=== PATIENT | female | born 2000 | race Caucasian/White ===

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

== ENCOUNTER 2021-06-15 17:02 | Outpatient (REF) | payer MEDICAID, SELFPAY ==
[2021-06-18 13:56] LABS: COVID-19 RT-PCR UVMMC Result Negative (Negative)
== END 2021-06-15 17:03 | disposition home or self-care (01) ==
LOC: NCHCN 17:02
PROVIDERS: Visit Provider Registered Nurse
DX: Z20.822 Contact with and (suspected) exposure to COVID-19 (principal); J06.9 Acute upper respiratory infection, unspecified
CPT/HCPCS: U0003

== ENCOUNTER 2021-10-02 11:23 | Outpatient (REF) | payer MEDICAID, SELFPAY ==
[2021-10-02 14:36] LABS: Abs Immature Grans 0.04 10^3/uL (0.0-0.06); Absolute Basophil Count 0.06 10^3/uL (0.0-0.2); Absolute Eosinophil Count 0.18 10^3/uL (0.0-0.7); Absolute Lymphocyte Count 2.42 10^3/uL (1.2-3.4); Absolute Monocyte Count 0.82 10^3/uL (0.1-0.8); Absolute Neutrophil Count 6.57 10^3/uL (1.2-6.7); Basophils % 0.6; Eosinophils % 1.8; HCT 43.6 % (36.0-46.0); HGB 14.6 g/dL (11.2-15.7); Immature Grans % 0.4; MCH 27.4 pg (27.0-33.0); MCHC 33.5 % (32.0-36.0); MCV 82 fL (80-95); MPV 11.7 fL (8.0-11.0); Monocytes % 8.1; Neutrophils % 65.1; Platelet Count 281 10^3/uL (130-400); RBC 5.32 10^6/uL (3.93-5.22); RDW 14.5 % (11.7-14.6); RDW-SD 43.5 fL; WBC 10.09 10^3/uL (4.4-10.8)
[2021-10-02 15:41] LABS: ALT 41 U/L (14-59); AST 24 U/L (15-37); Albumin 3.7 g/dL (3.4-5.0); Alkaline Phosphatase 78 U/L (46-116); Anion Gap 8.9 mmol/L (3-11); BUN 8 mg/dL (7-18); Bilirubin, Total 0.2 mg/dL (0.2-1.0); CO2 25.1 mmol/L (21.0-32.0); CREATININE 0.7 mg/dL (0.55-1.02); Calcium 8.9 mg/dL (8.5-10.1); Chloride 99 mmol/L (98-107); Glucose 98 mg/dL (74-106); Magnesium 2.2 mg/dL (1.8-2.4); Potassium 3.4 mmol/L (3.5-5.1); Sodium 133 mmol/L (136-145); TSH (W/Ref FT4) 1.26 uIU/mL (0.52-4.13); Total Protein 8.7 g/dL (6.4-8.2); Vitamin B12 566 pg/mL (193-986)
[2021-10-04 05:24] LABS: Vitamin D 25 Total 33.3 ng/mL (30-100)
[2021-10-04 11:51] LABS: COVID-19 RT-PCR UVMMC Result Negative (Negative)
== END 2021-10-02 11:24 | disposition home or self-care (01) ==
LOC: NCHCN 11:23
PROVIDERS: Visit Provider Nurse Practitioner Family
DX: B34.9 Viral infection, unspecified (principal); F41.1 Generalized anxiety disorder; Z20.822 Contact with and (suspected) exposure to COVID-19
CPT/HCPCS: 80053; 82306; U0003; 82607; 83735; 84443; 85025

== ENCOUNTER 2021-10-10 21:29 | Outpatient (REF) | payer MEDICAID, SELFPAY ==
[2021-10-10 22:18] LABS: ALT 39 U/L (14-59); AST 23 U/L (15-37); Albumin 3.4 g/dL (3.4-5.0); Alkaline Phosphatase 67 U/L (46-116); Anion Gap 11.1 mmol/L (3-11); BUN 16 mg/dL (7-18); Bilirubin, Total 0.1 mg/dL (0.2-1.0); CO2 26.9 mmol/L (21.0-32.0); CREATININE 0.8 mg/dL (0.55-1.02); Calcium 9.2 mg/dL (8.5-10.1); Chloride 100 mmol/L (98-107); Glucose 86 mg/dL (74-106); Potassium 4.1 mmol/L (3.5-5.1); Sodium 138 mmol/L (136-145)
== END 2021-10-10 21:30 | disposition home or self-care (01) ==
LOC: NCHCN 21:29
PROVIDERS: Visit Provider Nurse Practitioner Family
DX: B34.9 Viral infection, unspecified (principal)
CPT/HCPCS: 80053; 85025

== ENCOUNTER 2021-11-29 07:19 | Outpatient (REF) | payer MEDICAID, SELFPAY ==
[2021-11-29 22:08] LABS: Abs Immature Grans 0.02 10^3/uL (0.0-0.06); Absolute Basophil Count 0.07 10^3/uL (0.0-0.2); Absolute Lymphocyte Count 4.12 10^3/uL (1.2-3.4); Absolute Monocyte Count 0.64 10^3/uL (0.1-0.8); Basophils % 0.7; Eosinophils % 3.1; HCT 39.4 % (36.0-46.0); Immature Grans % 0.2; Lymphocytes % 42.3; MCH 27.6 pg (27.0-33.0); MCV 84 fL (80-95); MPV 12.4 fL (8.0-11.0); Monocytes % 6.6; Neutrophils % 47.1; Platelet Count 272 10^3/uL (130-400); RBC 4.71 10^6/uL (3.93-5.22); RDW 14.5 % (11.7-14.6); RDW-SD 44.2 fL; WBC 9.75 10^3/uL (4.4-10.8)
== END 2021-11-29 07:20 | disposition home or self-care (01) ==
LOC: NCHCN 07:19
PROVIDERS: Visit Provider Nurse Practitioner Family
DX: B34.9 Viral infection, unspecified (principal)
CPT/HCPCS: 85025

== ENCOUNTER 2022-09-16 15:49 | Outpatient (REF) | payer MEDICAID, SELFPAY ==
[2022-09-16 21:29] LABS: Abs Immature Grans 0.02 10^3/uL (0.0-0.06); Absolute Basophil Count 0.07 10^3/uL (0.0-0.2); Absolute Eosinophil Count 0.51 10^3/uL (0.0-0.7); Absolute Lymphocyte Count 3.34 10^3/uL (1.2-3.4); Absolute Monocyte Count 0.68 10^3/uL (0.1-0.8); Absolute Neutrophil Count 3.86 10^3/uL (1.2-6.7); Basophils % 0.8; HCT 38.8 % (36.0-46.0); HGB 12.9 g/dL (11.2-15.7); Immature Grans % 0.2; Lymphocytes % 39.4; MCH 29.1 pg (27.0-33.0); MCHC 33.2 % (32.0-36.0); MCV 88 fL (80-95); MPV 12.3 fL (8.0-11.0); Neutrophils % 45.6; Platelet Count 224 10^3/uL (130-400); RBC 4.43 10^6/uL (3.93-5.22); RDW 13.2 % (11.7-14.6); WBC 8.48 10^3/uL (4.4-10.8)
[2022-09-16 22:14] LABS: TSH (W/Ref FT4) 1.11 uIU/mL (0.36-3.74)
== END 2022-09-16 15:50 | disposition home or self-care (01) ==
LOC: NCHCN 15:49
PROVIDERS: Visit Provider Family Medicine
DX: R53.83 Other fatigue (principal); F32.89 Other specified depressive episodes; M25.562 Pain in left knee
CPT/HCPCS: 84443; 85025

== ENCOUNTER 2023-11-06 11:54 | Outpatient (REF) | payer MEDICAID, SELFPAY ==
--- OUTSIDE RECORDS SUMMARY | 2023-11-06 11:55 | XMS_ITS ---
Author Organization Unknown Address [address] [place] [address] [phone] Phone Care Team Providers Care Reach Truck Operator Name Role Phone PETE EMERY Registered Nurse Unavailable GENO Brooks Attending Unavailable PAULINA [facility] Unavailable KRYSTLE Haramn Primary Unavailable UNLISTED PROVIDER - REQUESTED Xhandoff Un available Results STREP GROUP A ANTIGEN ASSAY - Collect Date/Time: 03/13/2021 11:09 [facility] ID: [id number] [address] [place], [place], [address] LOINC: 31826-1 Test Value Unit Reference Range Code Code System Flag GRP A STREP ANTIGEN NOT DETECTED 6556-5 LOINC Social History Type Status Start Date End Date Code Code Syst em Smoking History Never smoker (Never Smoked) 956588729 SNOMED CT Sex Female Vital Signs Vital Sign Value Unit [place] Value [place] Unit Date/Time Recent/Initial? Code Code System Body Mass Index 25.75 kg/m2 03/13/2021 10:13 Initial 43619 -5 LOINC Body Mass Index Percentile 83 % 03/13/2021 10:13 Initial 86445 -9 LOINC Systolic Blood Pressure 124 mm[Hg] 03/13/2021 10:13 Initial 8480- 6 LOINC Diastolic Blood Pressure 90 mm[Hg] 03/13/2021 10:13 Initial 8462- 4 LOINC Body Surface Area 1.75 m2 03/13/2021 10:13 Initial 3140- 1 LOINC Height 162.560 0 cm 64.00 in 03/13/2021 10:13 Initial 8302- 2 LOINC O2 Saturation 99 % 2020 10:13 Initial 00446 -5 LOINC Pulse 104.0 /min 03/13/2021 10:13 Initial 8867- 4 LOINC Respiration 16 /min 03/13/20 10:13 Initial 9279- 1 LOINC Temperature 36.4 Penny 97.5 F 03/13/20 10:13 Initial 8310- 5 LOINC Weight 68.04 kg 150.00 lbs 03/13/2021 10:13 Initial 84474 -7 LOINC Medications Medication Start Date End Date Route Frequency Dose Code Code System Medication Instructions Home Meds Zofran 4MG Oral Tablet 12/18/2022 Unknown ORAL NEEDED EVERY 8 HOURS 1 TABLET 443729 RxNorm TAKE 1 TABLET ORAL NEEDED EVERY 8 HOURS Hospital Discharge Instructions Should you have any questions prior to discharge, please contact a member of your healthcare team. If you have left the hospital and have any questions, please contact your primary care physician. Reason For Referral No Data Found Problems Problem Start Date Resolved Date Status Code Code System ASTHMA 03/13/2021 resolved 919443624 SNOMED-CT Allergies and Adverse Reactions Allergy Substance Reaction Severity Start Date Concern Status Co de Code System No Known Drug Allergies Active 059111318 SNOMED-CT Plan of Treatment US PELVIC / TV 01/23/2023 US PELVIC / TV 02/18/2022 Encounters Encounter Diagnosis Start Date Code Code Sys tem Viral disease 03/13/2021 28403637 SNOMED-CT Personal Care Team Section Performer Name Performer Role Active Date Inactive Moustapha win
--- OUTSIDE RECORDS SUMMARY | 2023-11-06 11:56 | XMS_ITS ---
Author Organization Unknown Address [address] [place] [address] [phone] Phone Care Team Providers Care Emt Dispatcher Name Role Phone SLY Harman Attending Unavailable KRYSTLE Harman Primary Unavailable Results CHLAMYDIA/GC AMPLIFIED PROBE * - Collect Date/Time: 02/04/2022 15:07 [facility] ID: [id number] [address] [place], [place], [phone] LOINC: 52131-6 Test Value Unit Reference Range Code Code System Flag Chlamydia Result Negative Negative GC Result Negative Negative Social History Type Status Start Date End Date Code Code Syst em Smoking History Never smoker (Never Smoked) 002502713 SNOMED CT Sex Female Medications Medication Start Date End Date Route Frequency Dose Code Code System Medication Instructions Home Meds Zofran 4MG Oral Tablet 12/18/2022 Unknown ORAL NEEDED EVERY 8 HOURS 1 TABLET 297246 RxNorm TAKE 1 TABLET ORAL NEEDED EVERY 8 HOURS Hospital Discharge Instructions Should you have any questions prior to discharge, please contact a member of your healthcare team. If you have left the hospital and have any questions, please contact your primary care physician. Reason For Referral No Data Found Problems Problem Start Date Resolved Date Status Code Code System ASTHMA 03/13/2021 resolved 987803292 SNOMED-CT Allergies and Adverse Reactions Allergy Substance Reaction Severity Start Date Concern Status Co de Code System No Known Drug Allergies Active 443472251 SNOMED-CT Plan of Treatment US PELVIC / TV 01/23/2023 US PELVIC / TV 02/18/2022 Encounters Encounter Diagnosis Start Date Code Code Sys tem Contraception care education 02/04/2022 791573250 SNOMED-CT Personal Care Team Section Performer Name Performer Role Active Date Inactive Da quirino
--- OUTSIDE RECORDS SUMMARY | 2023-11-06 11:56 | XMS_ITS ---
Author Organization Unknown Address [address] [place] [address] [phone] Phone Care Team Providers Care Gear Lapping Machine Operator Name Role Phone PAMISAEL JULY Attending Unavailable KRYSTLE Harman Primary Unavailable Results VAGINAL SMEAR EVALUATION* - Collect Date/Time: 06/04/2021 10:52 [facility] ID: [id number] [address] [place] [address], [phone] LOINC: 18581-7 Test Value Unit Reference Range Code Code System Flag WBC s few Yeast. None Hyphae N/A Clue cells Not present TOTAL JOSEFA SCORE 4 CULT URINE CULTURE* - Collec t Date/Time: 06/04/2021 10:25 [facility] ID: [id number] [address] [place] [address], [phone] LOINC: 630-4 Test Value Unit Reference Range Code Code System Flag COLLECTION MODE: CLEAN CATCH Social History Type Status Start Date End Date Code Code Syst em Smoking History Never smoker (Never Smoked) 615292115 SNOMED CT Sex Female Medications Medication Start Date End Date Route Frequency Dose Code Code System Medication Instructions Home Meds Zofran 4MG Oral Tablet 12/18/2022 Unknown ORAL NEEDED EVERY 8 HOURS 1 TABLET 288066 RxNorm TAKE 1 TABLET ORAL NEEDED EVERY 8 HOURS Hospital Discharge Instructions Should you have any questions prior to discharge, please contact a member of your healthcare team. If you have left the hospital and have any questions, please contact your primary care physician. Reason For Referral No Data Found Problems Problem Start Date Resolved Date Status Code Code System ASTHMA 03/13/2021 resolved 272531320 SNOMED-CT Allergies and Adverse Reactions Allergy Substance Reaction Severity Start Date Concern Status Co de Code System No Known Drug Allergies Active 004096807 SNOMED-CT Plan of Treatment US PELVIC / TV 01/23/2023 US PELVIC / TV 02/18/2022 Encounters Encounter Diagnosis Start Date Code Code Sys tem Dysuria 06/04/2021 SNOMED-CT Personal Care Team Section Performer Name Performer Role Active Date Inactive Da te
--- OUTSIDE RECORDS SUMMARY | 2023-11-06 11:57 | XMS_ITS ---
Author Organization Unknown Address [address] [place] [address] [phone] Phone Care Team Providers Care Upper Stitcher Name Role Phone SLY Harman Attending Unavailable KRYSTLE Harman Primary Unavailable Results US PELVIC TRANSVAGINAL* - Co mpleted: 02/18/2022 09:02 LOINC: [facility] [place], [place] [address] PACS SHOWROOM CONSULTANT REPORT Patient Name: ADOLFO DAVIS MRN: Sex: : Age: [id number] F 2000 21 Account: Accession: Admit: StayType: [id number] 02/18/2022 O/P Ordered: Order ID: Submitted: Ordering Provider: 02/18/2022 08:34 [id number] MINI BRADY Completed: Technologist: Resulted: 02/18/2022 09:02 GVS 02/18/2022 12:30 Study Description: US PELVIC TRANSVAGINAL* Study Reason: PELVIC PAIN TECHNIQUE: Ultrasound of the pelvis was performed both transabdominal and transvaginal. COMPARISON: No exams were available for comparison FINDINGS: UTERUS: Exhibits normal size There are no uterine fibroids. Endometrial thickness measures 4 mm. There is no fluid in the endometrial canal. CERVIX: There are no obvious nabothian cysts. RIGHT OVARY: Exhibits age appropriate size. No significant cysts nor masses evident in the right ovary. LEFT OVARY: Exhibits age appropriate size. No significant cysts nor masses evident in the left ovary. CUL-DE-SAC: No free fluid evident. IMPRESSION: 1. Normal appearing uterus and age-appropriate endometrium. 2. No abnormal ovarian findings. 3. No free fluid evident in the adnexal regions and cul-de-sac. Report Digitally Signed by Nikolay Vides on 02/18/2022 12:30 PM EST Social History Type Status Start Date End Date Code Code Syst em Smoking History Never smoker (Never Smoked) 358664168 SNOMED CT Sex Female Medications Medication Start Date End Date Route Frequency Dose Code Code System Medication Instructions Home Meds Zofran 4MG Oral Tablet 12/18/2022 Unknown ORAL NEEDED EVERY 8 HOURS 1 TABLET 387653 RxNorm TAKE 1 TABLET ORAL NEEDED EVERY 8 HOURS Hospital Discharge Instructions Should you have any questions prior to discharge, please contact a member of your healthcare team. If you have left the hospital and have any questions, please contact your primary care physician. Reason For Referral No Data Found Problems Problem Start Date Resolved Date Status Code Code System ASTHMA 03/13/2021 resolved 683321848 SNOMED-CT Allergies and Adverse Reactions Allergy Substance Reaction Severity Start Date Concern Status Co de Code System No Known Drug Allergies Active 146081826 SNOMED-CT Plan of Treatment US PELVIC / TV 01/23/2023 US PELVIC / TV 02/18/2022 Encounters Encounter Diagnosis Start Date Code Code Sys tem Pelvic and perineal pain 02/18/2022 SNO MED-CT Personal Care Team Section Performer Name Performer Role Active Date Inactive Da te
--- OUTSIDE RECORDS SUMMARY | 2023-11-06 11:57 | XMS_ITS ---
Author Organization Unknown Address [address] [place] [address] [phone] Phone Care Team Providers Care Pneumatic System Conveyor Operator Name Role Phone PAMISAEL JULY Attending Unavailable KRYSTLE Harman Primary Unavailable Results SYPHILIS SEROLOGY* - Collect Date/Time: 02/27/2022 12:59 [facility] ID: [id number] [address] [place] [address], [phone] LOINC: 19808-2 Test Value Unit Reference Range Code Code System Flag Syphilis Serology Negative Negative URINALYSIS WITH MICRO AND RE FLEX CULTUR* - Collect Date/Time: 02/27/2022 12:59 [facility] ID: [id number] [address] [place] [address], [address] LOINC: 11745-7 Test Value Unit Reference Range Code Code System Flag COLLECTION MODE: CLEAN CATCH 45323-7 LOINC Color STRAW yellow 5778-6 LOINC Appearance CLEAR clear 5767-9 LOINC Glucose urine NEGATIVE negative mg/dl 72053-8 LOINC Bilirubin NEGATIVE negative 5770-3 LOINC Ketones NEGATIVE negative mg/dl 2514-8 LOINC Spec gravity 1.010 1.003 - 1.030 5811-5 LOINC pH urine 7.0 5.0 - 7.0 2756-5 LOINC Protein NEGATIVE negative mg/dl 97625-3 LOINC Urobilinogen 0.2 <or= 1 EU/dl 55634-4 LOINC Nitrite. NEGATIVE negative 5802-4 LOINC Blood NEGATIVE negative 5794-3 LOINC Leukocytes. TRACE negative A WBCs. 0-5 0-5 / hpf 62327-1 LOINC RBCs none 0-5 / hpf Epith cells 0-5 0-5 / hpf 25940-0 LOINC Cell types squamous Crystals none none Bacteria minimal none Mucus none none Casts none none /lpf Other SED RATE* - Collect Date/Philipp e: 02/27/2022 12:59 [facility] ID: [id number] [address] [place] [address], [address] LOINC: 4537-7 Test Value Unit Reference Range Code Code System Flag SED. RATE 30 mm/hr L=0 H=20 4537-7 LOINC H C REACTIVE PROTEIN HIGH SENS ITIVITY* - Collect Date/Time: 02/27/2022 12:59 [facility] ID: [id number] [address] [place] [address], [address] LOINC: 77979-0 Test Value Unit Reference Range Code Code System Flag CRP-HIGH SENS. 44.24 mg/L L=0.00 H=3.00 48759-3 LOINC H CRP-HIGH SENS 4.42 mg/dL L=0.00 H=0.30 08781-4 LOINC H CBC W/ DIFFERENTIAL* - Colle ct Date/Time: 02/27/2022 12:59 [facility] ID: [id number] [address] [place] [address], [address] LOINC: 68421-4 Test Value Unit Reference Range Code Code System Flag WBC 9.76 th/cmm L=5.00 H=10.00 6690-2 LOINC NEUT % 70.0 % L=40.0 H=80.0 LYMPH % 18.4 % L=10.0 H=50.0 MONO % 7.9 % L=2.0 H=12.0 74487-7 LOINC EOS % 2.5 % L=0.0 H=8.0 BASO % 0.9 % L=0.0 H=3.0 IG % 0.3 % L=0.0 H=1.1 1594-8 LOINC NRBC % 0.0 % L=0.0 H=0.0 74559-7 LOINC NEUT abs count 6.8 th/cmm L=1.6 H=8.4 751-8 LOINC LYMPH abs count 1.8 th/cmm L=1.5 H=4.0 731-0 LOINC MONO abs count 0.8 th/cmm L=0.2 H=1.0 742-7 LOINC EOS abs count 0.2 th/cmm L=0.0 H=0.5 711-2 LOINC BASO abs count 0.1 th/cmm L=0.0 H=0.2 704-7 LOINC IG abs count 0.0 th/cmm L=0.0 H=0.1 40985-0 LOINC NRBC abs count 0.0 mil/cmm L=0.0 H=0.0 67835-6 LOINC RBC 4.75 mil/cmm L=3.90 H=5.40 789-8 LOINC HEMOGLOBIN 13.2 gm/dL L=12.0 H=16.0 718-7 LOINC HEMATOCRIT 40 % L=37 H=47 4544-3 LOINC MCV 85 fL L=82 H=92 787-2 LOINC MCH 27.8 pg L=27.0 H=31.0 785-6 LOINC MCHC 32.8 % L=32.0 H=36.0 786-4 LOINC RDW-SD 43.8 fL L=39.0 H=49.0 788-0 LOINC PLATELET COUNT 243 th/cmm L=150 H=450 777-3 LOINC Social History Type Status Start Date End Date Code Code Syst em Smoking History Never smoker (Never Smoked) 077370579 SNOMED CT Sex Female Medications Medication Start Date End Date Route Frequency Dose Code Code System Medication Instructions Home Meds Zofran 4MG Oral Tablet 12/18/2022 Unknown ORAL NEEDED EVERY 8 HOURS 1 TABLET 558306 RxNorm TAKE 1 TABLET ORAL NEEDED EVERY 8 HOURS Hospital Discharge Instructions Should you have any questions prior to discharge, please contact a member of your healthcare team. If you have left the hospital and have any questions, please contact your primary care physician. Reason For Referral No Data Found Problems Problem Start Date Resolved Date Status Code Code System ASTHMA 03/13/2021 resolved 526179603 SNOMED-CT Allergies and Adverse Reactions Allergy Substance Reaction Severity Start Date Concern Status Co de Code System No Known Drug Allergies Active 355437304 SNOMED-CT Plan of Treatment US PELVIC / TV 01/23/2023 US PELVIC / TV 02/18/2022 Encounters Encounter Diagnosis Start Date Code Code Sys tem Left lower quadrant pain 02/27/2022 612841412 SNO MED-CT Personal Care Team Section Performer Name Performer Role Active Date Inactive Da te
--- OUTSIDE RECORDS SUMMARY | 2023-11-06 11:57 | XMS_ITS ---
Author Organization Unknown Address [address] [place] [address] [phone] Phone Care Team Providers Care Media Planner Name Role Phone PAMJuly Attending Unavailable DALTONFIELD JUDSON Harman Primary Unavailable Social History Type Status Start Date End Date Code Code Syst em Smoking History Never smoker (Never Smoked) 045256868 SNOMED CT Sex Female Medications Medication Start Date End Date Route Frequency Dose Code Code System Medication Instructions Home Meds Zofran 4MG Oral Tablet 12/18/2022 Unknown ORAL NEEDED EVERY 8 HOURS 1 TABLET 612321 RxNorm TAKE 1 TABLET ORAL NEEDED EVERY 8 HOURS Hospital Discharge Instructions Should you have any questions prior to discharge, please contact a member of your healthcare team. If you have left the hospital and have any questions, please contact your primary care physician. Reason For Referral No Data Found Problems Problem Start Date Resolved Date Status Code Code System ASTHMA 03/13/2021 resolved 621838373 SNOMED-CT Allergies and Adverse Reactions Allergy Substance Reaction Severity Start Date Concern Status Co de Code System No Known Drug Allergies Active 856700933 SNOMED-CT Plan of Treatment US PELVIC / TV 01/23/2023 US PELVIC / TV 02/18/2022 Encounters Encounter Diagnosis Start Date Code Code Sys tem Encounter for insertion of i ntrauterine contraceptive device 04/19/2022 SNOMED-CT Personal Care Team Section Performer Name Performer Role Active Date Inactive Da te
--- OUTSIDE RECORDS SUMMARY | 2023-11-06 11:57 | XMS_ITS ---
Author Organization Unknown Address [address] [place] [address] [phone] Phone Care Team Providers Care Dyed Raw Stock Blower Feeder Name Role Phone July Attending Unavailable DALTONFIELD JUDSON Harman Primary Unavailable Social History Type Status Start Date End Date Code Code Syst em Smoking History Never smoker (Never Smoked) 874050374 SNOMED CT Sex Female Medications Medication Start Date End Date Route Frequency Dose Code Code System Medication Instructions Home Meds Zofran 4MG Oral Tablet 12/18/2022 Unknown ORAL NEEDED EVERY 8 HOURS 1 TABLET 041988 RxNorm TAKE 1 TABLET ORAL NEEDED EVERY 8 HOURS Hospital Discharge Instructions Should you have any questions prior to discharge, please contact a member of your healthcare team. If you have left the hospital and have any questions, please contact your primary care physician. Reason For Referral No Data Found Problems Problem Start Date Resolved Date Status Code Code System ASTHMA 03/13/2021 resolved 790053832 SNOMED-CT Allergies and Adverse Reactions Allergy Substance Reaction Severity Start Date Concern Status Co de Code System No Known Drug Allergies Active 285106778 SNOMED-CT Plan of Treatment US PELVIC / TV 01/23/2023 US PELVIC / TV 02/18/2022 Encounters Encounter Diagnosis Start Date Code Code Sys tem Intrauterine device check 06/17/2022 118928579 SN OMED-CT Personal Care Team Section Performer Name Performer Role Active Date Inactive Da te
--- OUTSIDE RECORDS SUMMARY | 2023-11-06 11:58 | XMS_ITS ---
Author Organization Unknown Address [address] [place] [address] [phone] Phone Care Team Providers Care Plasma Center Nurse Name Role Phone YAHIR JASWANT Attending Unavailable KRYSTLE Harman Primary Unavailable Results US PELVIC TRANSVAGINAL* - Co mpleted: 01/23/2023 10:05 LOINC: [facility] [place], [place] [address] PACS BATTERY CHECKER REPORT Patient Name: ADOLFO DAVIS MRN: Sex: : Age: [id number] F 2000 Account: Accession: Admit: StayType: [id number] 01/23/2023 O/P Ordered: Order ID: Submitted: Ordering Provider: 01/23/2023 09:29 [id number] KT YAHIRJULY Completed: Technologist: Resulted: 01/23/2023 10:05 GVS 01/23/2023 10:11 Study Description: US PELVIC TRANSVAGINAL Study Reason: PELVIC PAIN TECHNIQUE: Ultrasound of the pelvis was performed both transabdominal and transvaginal. COMPARISON: Prior CT scan 12/18/2022 was reviewed. Prior ultrasound examination of the 02/18/2022 reviewed. FINDINGS: UTERUS: Uterus size is normal, measuring 8 cm length by 3.2 cm AP by 4.8 cm wide. There is an IUD in the uterine canal now evident which is in satisfactory position, as verified on 3D ultrasound reconstruction There are no uterine fibroids. Endometrial thickness measures 5-6 mm. There is no fluid in the endometrial canal. CERVIX: There are no obvious nabothian cysts. RIGHT OVARY: Measures 2.5 x 2.8 3.5 cm. Contains a simple cyst measuring 2.6 x 2.6 cm. LEFT OVARY: Measures 3.6 x 2 0 x 2.9 cm. Contains Sub centimeters follicles as well and has a cyst which measures 2.6 x 1.8 x 1.3 cm. CUL-DE-SAC: No free fluid evident. IMPRESSION: 1. IUD is in satisfactory position in the endometrial canal. No other uterine findings. 2. Simple unilocular ovarian cysts bilaterally with measurements as above. 3. No free fluid evident in the adnexal regions and cul-de-sac. Report Digitally Signed by Nikolay Vides on 01/23/2023 10:11 AM EDT Social History Type Status Start Date End Date Code Code Syst em Smoking History Never smoker (Never Smoked) 037871905 [employer] Sex Female Medications Medication Start Date End Date Route Frequency Dose Code Code System Medication Instructions Home Meds Zofran 4MG Oral Tablet 12/18/2022 Unknown ORAL NEEDED EVERY 8 HOURS 1 TABLET 734769 RxNorm TAKE 1 TABLET ORAL NEEDED EVERY 8 HOURS Hospital Discharge Instructions Should you have any questions prior to discharge, please contact a member of your healthcare team. If you have left the hospital and have any questions, please contact your primary care physician. Reason For Referral No Data Found Problems Problem Start Date Resolved Date Status Code Code System ASTHMA 03/13/2021 resolved 131765885 Tyromer Allergies and Adverse Reactions Allergy Substance Reaction Severity Start Date Concern Status Co de Code System No Known Drug Allergies Active 763449932 Tyromer Plan of Treatment US PELVIC / TV 01/23/2023 US PELVIC / TV 02/18/2022 Encounters Encounter Diagnosis Start Date Code Code Sys tem 01/23/2023 [id number] SNOMED-CT Personal Care Team Section Performer Name Performer Role Active Date Inactive Da te
--- OUTSIDE RECORDS SUMMARY | 2023-11-06 11:58 | XMS_ITS ---
Author Organization Unknown Address [address], [place] [phone] Phone Care Team Providers Care Lead Housekeeper Name Role Phone ALLAN WITT Registered Nurse Unavailable ELLY Harman Attending Unavailable [facility] Unavailable KRYSTLE Harman Primary Unavailable UNLISTED PROVIDER - REQUESTED Xhandoff Un available Results TEST QUAL (URINE) - Collect Date/Time: 12/18/2022 08:45 [facility] ID: [id number] [address] [place], [place], [address] LOINC: 2106-3 Test Value Unit Reference Range Code Code System Flag TEST NEGATIVE 2106-3 LOINC URINALYSIS WITH MICROSCOPIC* - Collect Date/Time: 12/18/2022 08:45 [facility] ID: [id number] [address] [place] [address], [address] LOINC: 25995-4 Test Value Unit Reference Range Code Code System Flag COLLECTION MODE: CLEAN CATCH 14954-5 LOINC Color YELLOW yellow 5778-6 LOINC Appearance CLEAR clear 5767-9 LOINC Glucose urine NEGATIVE negative mg/dl 60236-1 LOINC Bilirubin NEGATIVE negative 5770-3 LOINC Ketones 15 negative mg/dl 2514-8 LOINC A Spec gravity 1.020 1.003 - 1.030 5811-5 LOINC pH urine 7.0 5.0 - 7.0 2756-5 LOINC Protein NEGATIVE negative mg/dl 58357-2 LOINC Urobilinogen 0.2 <or= 1 EU/dl 73067-0 LOINC Nitrite NEGATIVE negative 5802-4 LOINC Blood NEGATIVE negative 5794-3 LOINC Leukocytes NEGATIVE negative 98149-4 LOINC WBCs none 0-5 / hpf RBCs 0-5 0-5 / hpf 59610-4 LOINC Epith cells 0-5 0-5 / hpf 97441-8 LOINC Cell types squamous Crystals none none Bacteria minimal none Mucus present none 8247-9 LOINC Casts none none /lpf Other LIPASE* NEW - Collect Date/T tiffanie: 12/18/2022 07:52 [facility] ID: [id number] [address] [place] [address], [id number] LOINC: 3040-3 Test Value Unit Reference Range Code Code System Flag LIPASE. 20 U/L L=16 H=77 COMPREHENSIVE METABOLIC PANE L (CMP) - Collect Date/Time: 12/18/2022 07:52 [facility] ID: [id number] [address] [place] [address], [address] LOINC: 22325-1 Test Value Unit Reference Range Code Code System Flag GLUCOSE 138 mg/dL L=70 H=116 2345-7 LOINC H BUN 10 mg/dL L=6 H=25 3094-0 LOINC CREATININE 0.81 mg/dL L=0.51 H=0.95 2160-0 LOINC SODIUM SERUM 139 mmol/L L=136 H=145 2951-2 LOINC POTASSIUM SERUM 3.6 mmol/L L=3.4 H=5.2 2823-3 LOINC CHLORIDE SERUM 104 mmol/L L=96 H=110 2075-0 LOINC CARBON DIOXIDE (CO2) 23 mmol/L L=22 H=34 2028-9 LOINC ANION GAP 12.2 mmol/L 99485-0 LOINC CALCIUM SERUM 9.7 mg/dL L=8.2 H=10.2 17172-6 LOINC BILIRUBIN TOTAL 0.6 mg/dL L=0.0 H=1.3 1975-2 LOINC ALK. PHOS. 71 U/L L=46 H=116 6768-6 LOINC SGOT (AST) 13 U/L L=15 H=37 1920-8 LOINC L SGPT (ALT) 19 U/L L=12 H=78 1742-6 LOINC TOTAL PROTEIN 7.9 gm/dL L=6.0 H=8.0 2885-2 LOINC ALBUMIN 4.5 gm/dL L=3.4 H=5.0 1751-7 LOINC AGE 22 years eGFR (non-Afr.Amer.) 89 mL/min 96794-8 LOINC eGFR (Afr-Uruguayan) 108 mL/min 49505-5 LOINC CBC W/ DIFFERENTIAL* - Colle ct Date/Time: 12/18/2022 07:52 [facility] ID: [id number] [address] [place], [place], [address] LOINC: 17546-0 Test Value Unit Reference Range Code Code System Flag WBC 11.12 th/cmm L=5.00 H=10.00 6690-2 LOINC H NEUT % 76.0 % L=40.0 H=80.0 LYMPH % 16.1 % L=10.0 H=50.0 MONO % 5.4 % L=2.0 H=12.0 49809-2 LOINC EOS % 1.5 % L=0.0 H=8.0 BASO % 0.6 % L=0.0 H=3.0 IG % 0.4 % L=0.0 H=1.1 2514-8 LOINC NRBC % 0.0 % L=0.0 H=0.0 44334-7 LOINC NEUT abs count 8.5 th/cmm L=1.6 H=8.4 751-8 LOINC H LYMPH abs count 1.8 th/cmm L=1.5 H=4.0 731-0 LOINC MONO abs count 0.6 th/cmm L=0.2 H=1.0 742-7 LOINC EOS abs count 0.2 th/cmm L=0.0 H=0.5 711-2 LOINC BASO abs count 0.1 th/cmm L=0.0 H=0.2 704-7 LOINC IG abs count 0.0 th/cmm L=0.0 H=0.1 48985-3 LOINC NRBC abs count 0.0 mil/cmm L=0.0 H=0.0 20140-9 LOINC RBC 5.04 mil/cmm L=3.90 H=5.40 789-8 LOINC HEMOGLOBIN 14.4 gm/dL L=12.0 H=16.0 718-7 LOINC HEMATOCRIT 44 % L=37 H=47 4544-3 LOINC MCV 87 fL L=82 H=92 787-2 LOINC MCH 28.6 pg L=27.0 H=31.0 785-6 LOINC MCHC 33.0 % L=32.0 H=36.0 786-4 LOINC RDW-SD 41.6 fL L=39.0 H=49.0 788-0 LOINC PLATELET COUNT 260 th/cmm L=150 H=450 777-[address] ABD PELVIS W IV CONTRAST ONLY - Completed: 12/18/2022 09:29 LOINC: [facility] RADI[facility] [place], [place] [address] PACS FACILITIES COORDINATOR REPORT Patient Name: ADOLFO DAVIS MRN: Sex: : Age: 51 F 2000 Account: Accession: Admit: StayType: [id number] 12/18/2022 E/R Ordered: Order ID: Submitted: Ordering Provider: 12/18/2022 09:12 [id number] DIANA PARRA Completed: Technologist: Resulted: 12/18/2022 09:29 SLG 12/18/2022 09:36 Study Description: CT ABD PELVIS W IV CONTRAST ONLY Reason for Study: Abdominal Pain Imaging Protocol: Axial computed tomography images with coronal and sagittal reformatted images were created and reviewed. Contrast Material: Intravenous: Omnipaque 350 Contrast volume: 100 mL Comparison: Pelvic ultrasound 18 February 2022 FINDINGS: Evaluation of the bowel is limited by lack of intra-abdominal fat and lack of oral contrast. Lung Bases: Normal where visualized. Liver: Normal density. No suspicious measurable mass. Gallbladder and Biliary Tract: No radiodense calculus.No biliary dilation. Pancreas: Normal density, no abnormal calcifications or inflammatory process. Spleen: Normal. Adrenals: No masses seen. Kidneys: Normal size, contour and axis. No radiodense stones. No obstructive uropathy. No suspicious masses seen. Abdominal Aorta: Abdominal portion non-dilated. Bowel: No obstruction. No bowel wall thickening. Appendix is unremarkable. Normal quantity of stool. Peritoneal Cavity: No ascites or focal collection. No mesenteric inflammatory response. No free air. Lymph Nodes: Within normal limits. Bones: Unremarkable for the patient's age. Soft Tissues: Unremarkable. Bladder: Symmetric distention. No gross wall thickening. Reproductive Organs: Unremarkable as visualized. IUD noted. IMPRESSION: No acute abnormality is identified in the abdomen and pelvis. Radiation Optimization: All CT scans at this facility use at least one of these dose optimization techniques: automated exposure control; mA and/or kV adjustment per patient size (includes targeted exams where dose is matched to clinical indication); or iterative reconstruction. Report Digitally Signed by Val Self on 12/18/2022 09:36 AM EDT Social History Type Status Start Date End Date Code Code Syst em Smoking History Never smoker (Never Smoked) 579462858 [facility] CT Sex Female Vital Signs Vital Sign Value Unit Hickory Value Hickory Unit Date/Time Recent/Initial? Code Code System Body Mass Index 21.46 kg/m2 12/18/2022 07:56 Initial 61727 -5 LOINC Systolic Blood Pressure 115 mm[Hg] 12/18/2022 10:09 Most Recent 8480- 6 LOINC Diastolic Blood Pressure 63 mm[Hg] 12/18/2022 10:09 Most Recent 8462- 4 LOINC Systolic Blood Pressure 138 mm[Hg] 12/18/2022 07:56 Initial 8480- 6 LOINC Diastolic Blood Pressure 88 mm[Hg] 12/18/2022 07:56 Initial 8462- 4 LOINC Body Surface Area 1.60 m2 12/18/2022 07:56 Initial 3140- 1 LOINC Height 162.560 0 cm 64.00 in 12/18/2022 07:56 Initial 8302- 2 LOINC O2 Saturation 98 % 2022 10:09 Most Recent 57248 -5 LOINC O2 Saturation 100 % 2022 07:56 Initial 13333 -5 LOINC Pulse 67.0 /min 12/18/2022 10:09 Most Recent 8867- 4 LOINC Pulse 61.0 /min 12/18/2022 07:56 Initial 8867- 4 LOINC Respiration 18 /min 12/19/19 07:56 Initial 9279- 1 LOINC Temperature 36.8 Penny 98.2 F 12/19/19 07:56 Initial 8310- 5 LOINC Weight 56.70 kg 125.00 lbs 12/18/2022 07:56 Initial 58842 -7 LOINC Medications Medication Start Date End Date Route Frequency Dose Code Code System Medication Instructions Home Meds Zofran 4MG Oral Tablet 12/18/2022 Unknown ORAL NEEDED EVERY 8 HOURS 1 TABLET 131249 RxNorm TAKE 1 TABLET ORAL NEEDED EVERY 8 HOURS Hospital Discharge Instructions Should you have any questions prior to discharge, please contact a member of your healthcare team. If you have left the hospital and have any questions, please contact your primary care physician. Reason For Referral No Data Found Problems Problem Start Date Resolved Date Status Code Code System ASTHMA 03/13/2021 resolved 181626346 SNOMED-CT Allergies and Adverse Reactions Allergy Substance Reaction Severity Start Date Concern Status Co de Code System No Known Drug Allergies Active 836777595 SNOMED-CT Plan of Treatment US PELVIC / TV 01/23/2023 US PELVIC / TV 02/18/2022 Encounters Encounter Diagnosis Start Date Code Code Sys tem Abdominal colic 12/18/2022 3141515 SNOMED-CT Personal Care Team Section Performer Name Performer Role Active Date Inactive Da quirino
--- OUTSIDE RECORDS SUMMARY | 2023-11-06 11:58 | XMS_ITS ---
Author Organization Unknown Address [address] [place] [phone] Phone Care Team Providers Care Automatic Lathe Tender Name Role Phone VIANCA Russell Attending Unavailable KRYSTLE Harman Primary Unavailable Results CHLAMYDIA/GC THINPREP* - Col lect Date/Time: 02/13/2023 16:33 [facility] ID: [id number] [address] [place] [address], [id number] LOINC: 59735-4 Test Value Unit Reference Range Code Code System Flag Chlamydia Result Negative Negative GC Result Negative Negative PAP THINPREP HPV IF ASC-US* - Collect Date/Time: 02/13/2023 16:33 [facility] ID: [id number] [address] [place] [address], [id number] LOINC: Test Value Unit Reference Range Code Code System Flag Report (See below) Social History Type Status Start Date End Date Code Code Syst em Smoking History Never smoker (Never Smoked) 096913232 SNOMED CT Sex Female Medications Medication Start Date End Date Route Frequency Dose Code Code System Medication Instructions Home Meds Zofran 4MG Oral Tablet 12/18/2022 Unknown ORAL NEEDED EVERY 8 HOURS 1 TABLET 609606 RxNorm TAKE 1 TABLET ORAL NEEDED EVERY 8 HOURS Hospital Discharge Instructions Should you have any questions prior to discharge, please contact a member of your healthcare team. If you have left the hospital and have any questions, please contact your primary care physician. Reason For Referral No Data Found Procedures Procedure Name Date Status Code Code Syste m Removal, Intrauterine Device 02/13/2023 completed 96860 CPT Therapeutic, Prophylactic, O r Diagnostic Injection; Subcutaneous Or Intramuscular 02/13/2023 completed 23624 CPT Problems Problem Start Date Resolved Date Status Code Code System ASTHMA 03/13/2021 resolved 836828453 SNOMED-CT Allergies and Adverse Reactions Allergy Substance Reaction Severity Start Date Concern Status Co de Code System No Known Drug Allergies Active 172523835 SNOMED-CT Plan of Treatment US PELVIC / TV 01/23/2023 US PELVIC / TV 02/18/2022 Encounters Encounter Diagnosis Start Date Code Code Sys tem Encounter for removal of int rauterine contraceptive device 02/13/2023 SNOMED-CT Personal Care Team Section Performer Name Performer Role Active Date Inactive Da te
--- OUTSIDE RECORDS SUMMARY | 2023-11-06 11:58 | XMS_ITS ---
Author Organization Unknown Address [address] [place] [phone] Phone Care Team Providers Care Firer Helper Name Role Phone VIOLET Claudio Attending Unavailable KRYSTLE Harman Primary Unavailable Results CBC W/ DIFFERENTIAL* - Colle ct Date/Time: 02/12/2023 16:08 [facility] ID: [id number] [address] [place], [place], [address] LOINC: 71959-7 Test Value Unit Reference Range Code Code System Flag WBC 10.22 th/cmm L=5.00 H=10.00 6690-2 LOINC H NEUT % 51.7 % L=40.0 H=80.0 LYMPH % 33.9 % L=10.0 H=50.0 MONO % 7.5 % L=2.0 H=12.0 71220-4 LOINC EOS % 5.8 % L=0.0 H=8.0 BASO % 0.8 % L=0.0 H=3.0 IG % 0.3 % L=0.0 H=1.1 2514-8 LOINC NRBC % 0.0 % L=0.0 H=0.0 79181-5 LOINC NEUT abs count 5.3 th/cmm L=1.6 H=8.4 751-8 LOINC LYMPH abs count 3.5 th/cmm L=1.5 H=4.0 731-0 LOINC MONO abs count 0.8 th/cmm L=0.2 H=1.0 742-7 LOINC EOS abs count 0.6 th/cmm L=0.0 H=0.5 711-2 LOINC H BASO abs count 0.1 th/cmm L=0.0 H=0.2 704-7 LOINC IG abs count 0.0 th/cmm L=0.0 H=0.1 48895-2 LOINC NRBC abs count 0.0 mil/cmm L=0.0 H=0.0 29090-5 LOINC RBC 4.65 mil/cmm L=3.90 H=5.40 789-8 LOINC HEMOGLOBIN 13.8 gm/dL L=12.0 H=16.0 718-7 LOINC HEMATOCRIT 41 % L=37 H=47 4544-3 LOINC MCV 88 fL L=82 H=92 787-2 LOINC MCH 29.7 pg L=27.0 H=31.0 785-6 LOINC MCHC 33.7 % L=32.0 H=36.0 786-4 LOINC RDW-SD 43.4 fL L=39.0 H=49.0 788-0 LOINC PLATELET COUNT 226 th/cmm L=150 H=450 777-3 LOINC TSH THYROID STIMULATING HORM ONE* - Collect Date/Time: 02/12/2023 16:08 [facility] ID: [id number] [address] [place], [place], [facility] LOINC: 3014-8 Test Value Unit Reference Range Code Code System Flag TSH 2.193 uIU/mL L=0.360 H=3.740 3014-8 LOINC Social History Type Status Start Date End Date Code Code Syst em Smoking History Never smoker (Never Smoked) 711042154 SNOMED CT Sex Female Medications Medication Start Date End Date Route Frequency Dose Code Code System Medication Instructions Home Meds Zofran 4MG Oral Tablet 12/18/2022 Unknown ORAL NEEDED EVERY 8 HOURS 1 TABLET 640244 RxNorm TAKE 1 TABLET ORAL NEEDED EVERY 8 HOURS Hospital Discharge Instructions Should you have any questions prior to discharge, please contact a member of your healthcare team. If you have left the hospital and have any questions, please contact your primary care physician. Reason For Referral No Data Found Problems Problem Start Date Resolved Date Status Code Code System ASTHMA 03/13/2021 resolved 593519176 SNOMED-CT Allergies and Adverse Reactions Allergy Substance Reaction Severity Start Date Concern Status Co de Code System No Known Drug Allergies Active 481314317 SNOMED-CT Plan of Treatment US PELVIC / TV 01/23/2023 US PELVIC / TV 02/18/2022 Encounters Encounter Diagnosis Start Date Code Code Sys tem Abnormal weight loss 02/12/2023 280942440 SNOMED- CT Personal Care Team Section Performer Name Performer Role Active Date Inactive Da quirino
--- OUTSIDE RECORDS SUMMARY | 2023-11-06 11:59 | XMS_ITS ---
Author Organization Unknown Address [address] [place] [phone] Phone Care Team Providers Care Manager Business Banking Name Role Phone VIOLET DONOVAN Shanon Attending Unavailable Social History Type Status Start Date End Date Code Code Syst em Smoking History Never smoker (Never Smoked) 503011588 SNOMED CT Sex Female Medications Medication Start Date End Date Route Frequency Dose Code Code System Medication Instructions Home Meds Zofran 4MG Oral Tablet 12/18/2022 Unknown ORAL NEEDED EVERY 8 HOURS 1 TABLET 076284 RxNorm TAKE 1 TABLET ORAL NEEDED EVERY 8 HOURS Hospital Discharge Instructions Should you have any questions prior to discharge, please contact a member of your healthcare team. If you have left the hospital and have any questions, please contact your primary care physician. Reason For Referral No Data Found Procedures Procedure Name Date Status Code Code Syste m Laparoscopy, Abdomen, Perito neum & Omentum, DX, w/wo Specimen(s), Brushing/Washing (Sep Proc) 07/21/2023 completed 81011 CPT Bx, Vulva/Perineum (Sep Proc); 1 Lesion 07/21/20[address] [place] [address] CPT Problems Problem Start Date Resolved Date Status Code Code System ASTHMA 03/13/2021 resolved 504918682 SNOMED-CT Allergies and Adverse Reactions Allergy Substance Reaction Severity Start Date Concern Status Co de Code System No Known Drug Allergies Active 417278646 SNOMED-CT Plan of Treatment US PELVIC / TV 01/23/2023 US PELVIC / TV 02/18/2022 Encounters Encounter Diagnosis Start Date Code Code Sys tem Pelvic and perineal pain 07/21/2023 SN[facility] MED-CT Personal Care Team Section Performer Name Performer Role Active Date Inactive Da te
--- OUTSIDE RECORDS SUMMARY | 2023-11-06 11:59 | XMS_ITS ---
Author Organization Unknown Address [address] [place], [place] [phone] Phone Care Team Providers Care Trade Union Secretary Name Role Phone VIOLET Claudio Attending Unavailable KRYSTLE Harman Primary Unavailable GRANT XIAO Secondary Unavailable Results CBC W/ DIFFERENTIAL* - Colle ct Date/Time: 07/01/2023 16:00 [facility] ID: [id number] [address] [place], [place], [address] LOINC: 25440-8 Test Value Unit Reference Range Code Code System Flag WBC 10.56 th/cmm L=5.00 H=10.00 6690-2 LOINC H NEUT % 53.8 % L=40.0 H=80.0 LYMPH % 35.1 % L=10.0 H=50.0 MONO % 7.0 % L=2.0 H=12.0 98145-2 LOINC EOS % 3.0 % L=0.0 H=8.0 BASO % 0.7 % L=0.0 H=3.0 IG % 0.4 % L=0.0 H=1.1 2514-8 LOINC NRBC % 0.0 % L=0.0 H=0.0 21555-6 LOINC NEUT abs count 5.7 th/cmm L=1.6 H=8.4 751-8 LOINC LYMPH abs count 3.7 th/cmm L=1.5 H=4.0 731-0 LOINC MONO abs count 0.7 th/cmm L=0.2 H=1.0 742-7 LOINC EOS abs count 0.3 th/cmm L=0.0 H=0.5 711-2 LOINC BASO abs count 0.1 th/cmm L=0.0 H=0.2 704-7 LOINC IG abs count 0.0 th/cmm L=0.0 H=0.1 42651-1 LOINC NRBC abs count 0.0 mil/cmm L=0.0 H=0.0 86137-7 LOINC RBC 4.70 mil/cmm L=3.90 H=5.40 789-8 LOINC HEMOGLOBIN 13.5 gm/dL L=12.0 H=16.0 718-7 LOINC HEMATOCRIT 41 % L=37 H=47 4544-3 LOINC MCV 88 fL L=82 H=92 787-2 LOINC MCH 28.7 pg L=27.0 H=31.0 785-6 LOINC MCHC 32.7 % L=32.0 H=36.0 786-4 LOINC RDW-SD 42.5 fL L=39.0 H=49.0 788-0 LOINC PLATELET COUNT 216 th/cmm L=150 H=450 777-3 LOINC Social History Type Status Start Date End Date Code Code Syst em Smoking History Never smoker (Never Smoked) 030366744 SNOMED CT Sex Female Medications Medication Start Date End Date Route Frequency Dose Code Code System Medication Instructions Home Meds Zofran 4MG Oral Tablet 12/18/2022 Unknown ORAL NEEDED EVERY 8 HOURS 1 TABLET 707642 RxNorm TAKE 1 TABLET ORAL NEEDED EVERY 8 HOURS Hospital Discharge Instructions Should you have any questions prior to discharge, please contact a member of your healthcare team. If you have left the hospital and have any questions, please contact your primary care physician. Reason For Referral No Data Found Problems Problem Start Date Resolved Date Status Code Code System ASTHMA 03/13/2021 resolved 740644954 SNOMED-CT Allergies and Adverse Reactions Allergy Substance Reaction Severity Start Date Concern Status Co de Code System No Known Drug Allergies Active 697083873 SNOMED-CT Plan of Treatment US PELVIC / TV 01/23/2023 US PELVIC / TV 02/18/2022 Encounters Encounter Diagnosis Start Date Code Code Sys tem Pre-surgery evaluation 07/01/2023 704868032 SNOME D-CT Personal Care Team Section Performer Name Performer Role Active Date Inactive Da te
--- OUTSIDE RECORDS SUMMARY | 2023-11-06 11:59 | XMS_ITS ---
Author Organization Unknown Address [address] [place] [phone] Phone Care Team Providers Care Creative Recruiter Name Role Phone VIANCA Russell Attending Unavailable DALTONFIELD ROPER Kimani Primary Unavailable Social History Type Status Start Date End Date Code Code Syst em Smoking History Never smoker (Never Smoked) 563262666 SNOMED CT Sex Female Medications Medication Start Date End Date Route Frequency Dose Code Code System Medication Instructions Home Meds Zofran 4MG Oral Tablet 12/18/2022 Unknown ORAL NEEDED EVERY 8 HOURS 1 TABLET 877405 RxNorm TAKE 1 TABLET ORAL NEEDED EVERY 8 HOURS Hospital Discharge Instructions Should you have any questions prior to discharge, please contact a member of your healthcare team. If you have left the hospital and have any questions, please contact your primary care physician. Reason For Referral No Data Found Problems Problem Start Date Resolved Date Status Code Code System ASTHMA 03/13/2021 resolved 957864553 SNOMED-CT Allergies and Adverse Reactions Allergy Substance Reaction Severity Start Date Concern Status Co de Code System No Known Drug Allergies Active 223272719 SNOMED-CT Plan of Treatment US PELVIC / TV 01/23/2023 US PELVIC / TV 02/18/2022 Encounters Encounter Diagnosis Start Date Code Code Sys tem Surveillance of depot contraception done 05/01/2023 88630361380255 SNOMED-CT Personal Care Team Section Performer Name Performer Role Active Date Inactive Da te
--- OUTSIDE RECORDS SUMMARY | 2023-11-06 11:59 | XMS_ITS ---
Author Organization Unknown Address [address] [place] [phone] Phone Care Team Providers Care Filleter Name Role Phone VIOLET Claudio Attending Unavailable ROMAN Lane CRNA Unavailable Results TEST QUAL (URINE) - Collect Date/Time: 07/21/2023 08:59 [facility] ID: [id number] [address] [place], [place], [address] LOINC: 2106-3 Test Value Unit Reference Range Code Code System Flag TEST NEGATIVE 2106-3 LOINC Social History Type Status Start Date End Date Code Code Syst em Smoking History Never smoker (Never Smoked) 527154308 SNOMED CT Sex Female Vital Signs Vital Sign Value Unit Kleberg Value Kleberg Unit Date/Time Recent/Initial? Code Code System Body Mass Index 22.48 kg/m2 07/16/2023 10:55 Initial 29030 -5 LOINC Systolic Blood Pressure 102 mm[Hg] 07/21/2023 11:37 Initial 8480- 6 LOINC Diastolic Blood Pressure 67 mm[Hg] 07/21/2023 11:37 Initial 8462- 4 LOINC Body Surface Area 1.66 m2 07/16/2023 10:55 Initial 3140- 1 LOINC Height 163.830 0 cm 64.50 in 07/16/2023 10:55 Initial 8302- 2 LOINC O2 Saturation 99 % 2023 11:37 Initial 52204 -5 LOINC Pulse 63.0 /min 07/21/2023 11:37 Initial 8867- 4 LOINC Respiration 18 /min 07/21/19 11:37 Initial 9279- 1 LOINC Temperature 36.7 Penny 98.1 F 07/21/19 24 11:37 Initial 8310- 5 [facility] Weight 60.33 kg 133.00 lbs 07/16/2023 10:55 Initial 13593 -7 [facility] Medications Medication Start Date End Date Route Frequency Dose Code Code System Medication Instructions Home Meds Zofran 4MG Oral Tablet 12/18/2022 Unknown ORAL NEEDED EVERY 8 HOURS 1 TABLET 024337 RxNorm TAKE 1 TABLET ORAL NEEDED EVERY [...] w/wo Specimen(s), Brushing/Washing (Sep Proc) 07/21/2023 completed 90669 CPT Bx, Vulva/Perineum (Sep Proc); 1 Lesion 07/21/2023 [place] [address] CPT Anesthesia, Intraperitoneal Proc, Lower Abdomen, w/Laparoscopy; NOS 07/21/2023 completed 28259 CPT Problems Problem Start Date Resolved Date Status Code Code System ASTHMA 03/13/2021 resolved 667371240 SNOMED-CT Allergies and Adverse Reactions Allergy Substance Reaction Severity Start Date Concern Status Co de Code System No Known Drug Allergies Active 693737182 SNOMED-CT Plan of Treatment US PELVIC / TV 01/23/2023 US PELVIC / TV 02/18/2022 Encounters Encounter Diagnosis Start Date Code Code Sys tem Pelvic and perineal pain 07/21/2023 SN[facility] MED-CT Personal Care Team Section Performer Name Performer Role Active Date Inactive Da te
--- OUTSIDE RECORDS SUMMARY | 2023-11-06 12:00 | XMS_ITS | Encounter Summary ---
Author Organization [facility] Address [address] [place] [id number] Care Team Providers Care Filterer Name Role Phone Unavailable Primary Care Provider Unavailabl e Encounter Details Date Type Department Care Team (Late st Contact Info) Description 02/13/2023 Lab [facility] Pathology & Laboratory Medicine - [address] [address] Outr Resulting Lab, Provider Social History Tobacco Use Types Packs/Day Years Used Date Smoking Tobacco: Never Assessed Interpersonal Safety Answer Date Record ed Physically Hurt Never 04/14/2020 Verbally Threaten Not on file 04/14/2020 Sex and Gender Information Value Date Recorded Sex Assigned at Not on file Gender Identity Not on file Sexual Orientation Not on file documented as of this encounter Plan of Treatment Not on file documented as of this encounter Procedures Procedure Name Priority Date/Time Associated Diagnosis Comments CHLAMYDIA/N. GONORRHOEAE AMPLIFIED NUCLEIC ACID, THINPREP Today 02/13/2023 16:33 EST documented in this encounter Results * CHLAMYDIA/N. GONORRHOEAE AMPLIFIED RNA, THINPREP (02/13/2023 16:33 EST) Neisseria gonorrhoeae Result Negative Negative 02/14/2023 18:31 EST [facility] Chlamydia trachomatis Result Negative Negative 02/14/2023 18:31 EST [facility] Pap Test CERVIX UTERI STRUCTURE / Unknown 02/13/2023 16:33 EST 02/14/2023 10:59 EST Provider Outr Resulting Lab MICROBIOLOGY - GENERAL ORDERABLES [facility] [address] [place] [address] documented in this encounter Visit Diagnoses Not on filedocumented in this encounter
--- OUTSIDE RECORDS SUMMARY | 2023-11-06 12:00 | XMS_ITS | Encounter Summary ---
Author Organization [facility] Address [address] [place] [address] Care Team Providers Care Geometrician Name Role Phone Unavailable Primary Care Provider Unavailabl e Encounter Details Date Type Department Care Team (Late st Contact Info) Description 02/27/2022 Lab Requisition [facility] Pathology & Laboratory Medicine - [address] [address] Outr Resulting Lab, Provider Social History Tobacco [...] Procedure Name Priority Date/Time Associated Diagnosis Comments HEPATITIS C AB W REFLEX TO HCV RNA BY PCR Routine 02/27/2022 12:59 EST documented in this encounter Results * HEPATITIS C AB W REFLEX TO HCV RNA BY PCR (02/27/2022 12:59 EST) Hep C Antibody Negative Negative 02/28/2022 9:42 EST [facility] Blood VENOUS BLOOD / Unknown 02/27/2022 12:59 EST 02/27/2022 16:19 EST Provider Outr Resulting Lab CHEMISTRY & BLOOD GAS ORDERABLES [facility] [address] [place] [address] documented in this encounter Visit Diagnoses Not on filedocumented in this encounter
--- OUTSIDE RECORDS SUMMARY | 2023-11-06 12:00 | XMS_ITS | Encounter Summary ---
Author Organization [facility] Address [address] [place] [address] Care Team Providers Care Lathe Spotter Name Role Phone Unavailable Primary Care Provider Unavailabl e Encounter Details Date Type Department Care Team (Late st Contact Info) Description 02/27/2022 Lab Requisition [facility] Pathology & Laboratory Medicine - [address] [address] Outr Resulting Lab, Provider Social History Tobacco [...] Procedure Name Priority Date/Time Associated Diagnosis Comments SYPHILIS SEROLOGY Routine 02/27/2022 12: 59 EST documented in this encounter Results * SYPHILIS SEROLOGY (02/27/2022 12:59 EST) Syphilis Serology Negative Negative 03/01/2022 11:09 EST [facility] Blood VENOUS BLOOD / Unknown 02/27/2022 12:59 EST 02/27/2022 16:20 EST Provider Outr Resulting Lab IMMUNOLOGY A ND SEROLOGY ORDERABLES [facility] [address] [place] [address] documented in this encounter Visit Diagnoses Not on filedocumented in this encounter
--- OUTSIDE RECORDS SUMMARY | 2023-11-06 12:00 | XMS_ITS | Encounter Summary ---
Author Organization [facility] Address [address] [place] [address] Care Team Providers Care Protective Signal Repairer Helper Name Role Phone Unavailable Primary Care Provider Unavailabl e Encounter Details Date Type Department Care Team (Late st Contact Info) Description 02/04/2022 Lab Requisition [facility] Pathology & Laboratory Medicine - [facility] [address] [place] [address] Outr Resulting Lab, Provider Social History Tobacco [...] Associated Diagnosis Comments CHLAMYDIA/N. GONORRHOEAE AMPLIFIED NUCLEIC ACID Routine 02/04/2022 15:07 EDT documented in this encounter Results * CHLAMYDIA/N. GONORRHOEAE AMPLIFIED RNA (02/04/2022 15:07 EDT) Neisseria gonorrhoeae Result Negative Negative 02/05/2022 15:37 EDT [facility] Chlamydia trachomatis Result Negative Negative 02/05/2022 15:37 EDT [facility] Urine URINE / Unknown 02/04/2022 1 5:07 EDT 02/04/2022 21:26 EDT Narrative [facility] - 02/05/2022 15:37 EDT A first catch urine specimen is acceptable for detection of Gonorrhea and Chlamydia, but might detect up to 10% fewer infections when compared with vaginal and endocervical swab samples. Provider Outr Resulting Lab MICROBIOLOGY - GENERAL ORDERABLES [facility] [address] [place] [address] documented in this encounter Visit Diagnoses Not on filedocumented in this encounter
--- OUTSIDE RECORDS SUMMARY | 2023-11-06 12:00 | XMS_ITS | Encounter Summary ---
Author Organization [facility] Address [address] [place] [address] Care Team Providers Care Relay Repairer Name Role Phone Unavailable Primary Care Provider Unavailabl e Encounter Details Date Type Department Care Team (Late st Contact Info) Description 04/14/2020 Lab Requisition [facility] Pathology & Laboratory Medicine - [address] [address] Outr Resulting Lab, Provider Social History Tobacco [...] Comments CHLAMYDIA/N. GONORRHOEAE AMPLIFIED NUCLEIC ACID Routine 04/13/2020 13:30 EST documented in this encounter Results * CHLAMYDIA/N. GONORRHOEAE AMPLIFIED RNA (04/13/2020 13:30 EST) Neisseria gonorrhoeae Result Negative Negative 04/17/2020 15:53 EST [facility] Chlamydia trachomatis Result Negative Negative 04/17/2020 15:53 EST [facility] Swab ENTIRE VAGINA / Unknown 04/13/2020 13:30 EST 04/14/2020 16:09 EST Provider Outr Resulting Lab MICROBIOLOGY - GENERAL ORDERABLES [facility] [address] [place] [address] documented in this encounter Visit Diagnoses Not on filedocumented in this encounter
--- OUTSIDE RECORDS SUMMARY | 2023-11-06 12:00 | XMS_ITS | Clinical Summary ---
Author Organization [facility] Address [address] [place] [id number] Care Team Providers Care Wastewater Treatment Engineer Name Role Phone Unavailable Primary Care Provider Unavailabl e Social History Tobacco Use Types Packs/Day Years Used Date Smoking Tobacco: Never Assessed Interpersonal Safety Answer Date Record ed Physically Hurt Never 04/14/2020 Verbally Threaten Not on file 04/14/2020 Sex and Gender Information Value Date Recorded Sex Assigned at Not on file Gender Identity Not on file Sexual Orientation Not on file Plan of Treatment Health Maintenance Due Date Last Done Comments Hepatitis B Vaccine (1 of 3 - 19+ 3-dose series) 11/26 COVID-19 Vaccine (2022- season) 2022 Hepatitis C Screen Completed 02/27/2022 Procedures Procedure Name Priority Date/Time Associated Diagnosis Comments HEPATITIS C AB W REFLEX TO HCV RNA BY PCR Routine 02/27/2022 12:59 EST from Last 3 Months or Most Recently Relevant to Health Maintenance Results * HEPATITIS C AB W REFLEX TO HCV RNA BY PCR (02/27/2022 12:59 EST) Hep C Antibody Negative Negative 02/28/2022 9:42 EST [facility] Blood VENOUS BLOOD / Unknown 02/27/2022 12:59 EST 02/27/2022 16:19 EST Provider Outr Resulting Lab CHEMISTRY & BLOOD GAS ORDERABLES [facility] [address] [place] [address] from Last 3 Months or Most Recently Relevant to Health Maintenance
--- OUTSIDE RECORDS SUMMARY | 2023-11-06 12:00 | XMS_ITS | Encounter Summary ---
Author Organization [facility] system Address [address] [place] [address] Care Team Providers Care Engine Hostler Name Role Phone Unavailable Primary Care Provider Unavailabl e Encounter Details Date Type Department Care Team (Late st Contact Info) Description 02/27/2022 Lab Requisition [facility] Pathology & Laboratory Medicine - [address] [id number] Outr Resulting Lab, Provider Social History Tobacco [...] Procedure Name Priority Date/Time Associated Diagnosis Comments HIV 1/2 ANTIGEN AND ANTIBODY, 4TH GENERATION Routine 02/27/2022 12:59 EST documented in this encounter Results * HIV 1/2 ANTIGEN AND ANTIBODY, 4TH GENERATION (02/27/2022 12:59 EST) HIV 1 and 2 Antibody/p24 Antigen, 4th Generation Negative Negative 02/28/2022 10:28 EST [facility] Comment:If acute HIV-1 infec tion is suspected in a high risk patient, submit plasma specimen for HIV-1 RNA quantitation test. Blood VENOUS BLOOD / Unknown 02/27/2022 12:59 EST 02/27/2022 16:20 EST Narrative [facility] - 02/28/2022 10:28 EST Fourth Generation assay performed on the Siemens Centaur XPT. Provider Outr Resulting Lab IMMUNOLOGY A ND SEROLOGY ORDERABLES [facility] [address] [place] [address] documented in this encounter Visit Diagnoses Not on filedocumented in this encounter
--- OUTSIDE RECORDS SUMMARY | 2023-11-06 12:00 | XMS_ITS | Encounter Summary ---
Author Organization [facility] Address [address] [place] [address] Care Team Providers Care Hand Cloth Cutter Name Role Phone Unavailable Primary Care Provider Unavailabl e Encounter Details Date Type Department Care Team (Late st Contact Info) Description 02/27/2022 Lab Requisition [facility] Pathology & [place] [address] Outr Resulting Lab, Provider Social History Tobacco [...] Name Priority Date/Time Associated Diagnosis Comments HEPATITIS B SURFACE ANTIGEN Routine 02/27/2022 12:59 EST documented in this encounter Results * HEPATITIS B SURFACE ANTIGEN (02/27/2022 12:59 EST) Hep B Surface Ag Negative Negative 02/28/2022 9:14 EST [facility] Blood VENOUS BLOOD / Unknown 02/27/2022 12:59 EST 02/27/2022 16:19 EST Provider Outr Resulting Lab CHEMISTRY & BLOOD GAS ORDERABLES [facility] [address] [place] [address] documented in this encounter Visit Diagnoses Not on filedocumented in this encounter
--- OUTSIDE RECORDS SUMMARY | 2023-11-06 12:00 | XMS_ITS ---
Author Organization Unknown Address [address] [place] [phone] Phone Care Team Providers Care Legal Stenographer Name Role Phone SALLYTONIE SIDDIQUIARCHANA Claudio Attending Unavailable Social History Type Status Start Date End Date Code Code Syst em Smoking History Never smoker (Never Smoked) [id number] SNOMED CT Sex Female Medications Medication Start Date End Date Route Frequency Dose Code Code System Medication Instructions Home Meds Zofran 4MG Oral Tablet 12/18/2022 Unknown ORAL NEEDED EVERY 8 HOURS 1 TABLET 283611 RxNorm TAKE 1 TABLET ORAL NEEDED EVERY 8 HOURS Hospital Discharge Instructions Should you have any questions prior to discharge, please contact a member of your healthcare team. If you have left the hospital and have any questions, please contact your primary care physician. Reason For Referral No Data Found Problems Problem Start Date Resolved Date Status Code Code System ASTHMA 03/13/2021 resolved [id number] SNOMED-CT Allergies and Adverse Reactions Allergy Substance Reaction Severity Start Date Concern Status Co de Code System No Known Drug Allergies Active [id number] SNOMED-CT Plan of Treatment US PELVIC / TV 01/23/2023 US PELVIC / TV 02/18/2022 Encounters Encounter Diagnosis Start Date Code Code Sys tem Follow-up visit 08/13/2023 [id number] SNOMED-CT Personal Care Team Section Performer Name Performer Role Active Date Inactive Da te
--- OUTSIDE RECORDS SUMMARY | 2023-11-06 12:00 | XMS_ITS | Referral Summary ---
Author Organization [facility] Address [address] [place] [address] Care Team Providers Care Vending Service Technician Name Role Phone Unavailable Primary Care Provider [...] Orientation Not on file Plan of Treatment Not on file Procedures Procedure Name Priority Date/Time Associated Diagnosis Comments HEPATITIS C AB W REFLEX TO HCV RNA BY PCR Routine 02/27/2022 12:59 EST from Last 3 Months or Most Recently Relevant to Health Maintenance Results * HEPATITIS C AB W REFLEX TO HCV RNA BY PCR (02/27/2022 12:59 EST) Hep C Antibody Negative Negative 02/28/2022 9:42 EST [facility] Blood VENOUS BLOOD / Unknown 02/27/2022 12:59 EST 02/27/2022 16:19 EST Provider Outr Resulting Lab CHEMISTRY & BLOOD GAS ORDERABLES [facility] [address] [place] [address] from Last 3 Months or Most Recently Relevant to Health Maintenance
--- OUTSIDE RECORDS SUMMARY | 2023-11-06 12:00 | XMS_ITS | Encounter Summary ---
Author Organization [facility] Address [address] [place] [address] Care Team Providers Care Project Planner Name Role Phone Unavailable Primary Care Provider Unavailabl e Encounter Details Date Type Department Care Team (Late st Contact Info) Description 10/03/2021 Lab Requisition [facility] Pathology & Laboratory Medicine - [address] [address] Outr Resulting Lab, Provider Social History Tobacco [...] Procedure Name Priority Date/Time Associated Diagnosis Comments ZZCOVID-19 TEST [facility] PCR Today 10/02/2021 9:40 EDT COVID-19 TESTING Routine 10/02/2021 9:40 EDT documented in this encounter Results * [facility] TEST [facility] (10/02/2021 9:40 EDT) Swab 10/02/2021 9:40 EDT 10/03/2021 17:17 EDT Provider Outr Resulting Lab MICROBIOLOGY - GENERAL ORDERABLES [facility] [address] [place] [address] * COVID-19 TESTING (10/02/2021 9:40 EDT) COVID-19 rt-PCR Result Negative Negative 10/04/2021 11:45 EDT [facility] Comment: This test has not been FDA cleared or approved. This test has been authorized by FDA under an EUA for use by authorized laboratories. This test has been authorized only for detection of nucleic acid from 2019-nCoV, not for any other viruses or pathogens. This test is only authorized for the duration of the declaration that circumstances exist justifying the authorization of emergency use of in vitro diagnostic tests for detection and/or diagnosis of 2019-nCoV under section 564(b)(1) of Act, 21 U.S.C ?? 360bbb-3(b) (1), unless the authorization is terminated or revoked sooner. Negative results do not preclude 2019-nCoV infection and should not be used as the sole basis for treatment or other patient management decisions. Negative results must be combined with clinical observations, patient history, and epidemiological information. Testing was performed using the molina SARS-CoV-2 assay ([employer] on the Molina 6800 System Performing Lab Molina [address] [facility] 10/04/2021 11:45 EDT [facility] Swab 10/02/2021 9:40 EDT 10/03/2021 17:17 EDT Provider Outr Resulting Lab MICROBIOLOGY - GENERAL ORDERABLES [facility] [address] [place] [address] documented in this encounter Visit Diagnoses Not on filedocumented in this encounter
--- OUTSIDE RECORDS SUMMARY | 2023-11-06 12:00 | XMS_ITS | Encounter Summary ---
Author Organization [facility] Address [address] [place] [address] Care Team Providers Care Research Assistant Member Name Role Phone Unavailable Primary Care Provider Unavailabl e Encounter Details Date Type Department Care Team (Late st Contact Info) Description 06/16/2021 Lab Requisition [facility] Pathology & Laboratory Medicine - [address] [address] Outr Resulting Lab, Provider Social History Tobacco [...] Priority Date/Time Associated Diagnosis Comments ZZCOVID-19 TEST [facility] PCR Today 06/15/2021 13:35 EST COVID-19 TESTING Routine 06/15/2021 13:3 5 EST documented in this encounter Results * COVID-19 TEST [facility] PCR (06/15/2021 13:35 EST) Swab 06/15/2021 13:3 5 EST 06/17/2021 16:20 EDT Provider Outr Resulting Lab MICROBIOLOGY - GENERAL ORDERABLES [facility] [address] [place] [address] * COVID-19 TESTING (06/15/2021 13:35 EST) COVID-19 rt-PCR Result Negative Negative 06/18/2021 13:50 EDT [facility] Comment: This test has not [...] performed using the molina SARS-CoV-2 assay ([employer] on the Molina 6800 System Performing Lab [facility] [address] [facility] 06/18/2021 13:50 EDT [facility] Swab 06/15/2021 13:3 5 EST 06/17/2021 16:20 EDT Provider Outr Resulting Lab MICROBIOLOGY - GENERAL ORDERABLES [facility] [address] [place] [address] documented in this encounter Visit Diagnoses Not on filedocumented in this encounter
--- OUTSIDE RECORDS SUMMARY | 2023-11-06 12:00 | XMS_ITS | Encounter Summary ---
Author Organization [facility] Address [address] [place] [address] Care Team Providers Care Business Development Agent Name Role Phone Unavailable Primary Care Provider Unavailabl e Encounter Details Date Type Department Care Team (Late st Contact Info) Description 02/13/2023 Lab Requisition [facility] Pathology & Laboratory Medicine - [facility] [address] [place] [address] Martha Pickard CNM [address] [facility] [address] [place] [address] Encounter for screening for malignant neoplasm of cervix Social History Tobacco Use Types Packs/Day Years [...] Procedure Name Priority Date/Time Associated Diagnosis Comments PAP TEST Today 02/13/2023 16:33 EST documented in this encounter Results * PAP TEST (02/13/2023 16:33 EST) Specimens A. Cervix and/or Endocervix , ThinPrep Imaging System with Manual Evaluation 02/21/2023 13:46 EST [facility] Specimen Adequacy Satisfactory for Evaluation - transformation zone component present 02/21/2023 13:46 EST [facility] General Categorization Negative for intraepithelial lesion or malignancy 02/21/2023 13:46 EST [facility] Attestation . 02/21/2023 13:46 EST [facility] at 1346 Clinical History Clinical History, Signs, Symptoms, Chief Complaint, Pertaining to This Order: See below Hormone/Contracep tive Use?: Yes ?: No Post-?: No 02/21/2023 13:46 EST [facility] Performing Lab [facility] 02/21/2023 13:46 EST [facility] Scanned Images 02/21/2023 13:46 EST [facility] Pap Test CERVIX UTERI STRUCTURE / Unknown 02/13/2023 16:33 EST 02/19/2023 10:21 EST Martha Pickard [facility] PATHOLOGY ORDERABLES Performing Organization Address City/State/[facility] Co de Phone Number [facility] [address] [place] [address] documented in this encounter Visit Diagnoses Diagnosis Encounter for screening for malignant neoplasm of cervix Screening for malignant neoplasm of the cervix documented in this encounter
[2023-11-07 10:39] LABS: Chlamydia Result Negative (Negative); GC Result Negative (Negative)
== END 2023-11-06 11:55 | disposition home or self-care (01) ==
LOC: NCHCN 11:54
PROVIDERS: Visit Provider Family Medicine
DX: R10.2 Pelvic and perineal pain (principal); Z11.3 Encounter for screening for infections with a predominantly sexual mode of transmission
CPT/HCPCS: 87491; 87591